=== PATIENT | male | born 1995 | race Caucasian/White ===

== ENCOUNTER 2017-04-24 14:04 | Emergency (ER) | payer BC ==
[~2017-04-24] VITALS: Ht 185.4 cm; Wt 89.8 kg
[2017-04-24 14:11] VITALS: Ht 185.4 cm; Wt 89.8 kg
[2017-04-24] MEDS ORDERED: SODIUM CHLORIDE 0.9% 1000ML 1,000 ML IV STA (15:22)
[2017-04-24] MEDS ORDERED: KETOROLAC TROMETHAMINE 30 MG/ML VIAL IV STA (15:22)
[2017-04-24 16:01] LABS: BASO % 1.1 %; BASO ABS # 0.04 K/uL (0-0.2); COMPLETE YES; HEMATOCRIT 37.8 % (42-52); IG% 0.3 %; LYMPH % 19.8 %; LYMPH ABS # 0.71 K/uL (1.2-3.4); MEAN CELL VOLUME 87.5 fL (80-100); MEAN CORPUSCULAR HEMOGLOBIN 31.3 pg (25-34); MEAN CORPUSCULAR HGB CONC 35.7 g/dl (32-36); MEAN PLATELET VOLUME 9.9 fL (7.4-10.4); MONO % 6.1 %; NEUT % 72.7 %; PLATELET COUNT 115 K/uL (130-400); RED BLOOD COUNT 4.32 M/uL (4.7-6.1); WHITE BLOOD COUNT 3.59 K/uL (4.8-10.8)
--- NOTE | 2017-04-24 16:04 | DIAGNOSTIC IMAGING REPORT ---
SINGLE VIEW CHEST CLINICAL HISTORY: Fever. FINDINGS: An AP, portable, upright chest radiograph is obtained. No prior studies are available for comparison at the time of dictation. The cardiomediastinal silhouette is unremarkable. The lungs and pleural spaces are clear. No pneumothorax is seen. The bony thorax is grossly intact. IMPRESSION: No active disease in the chest. Electronically signed by: Carson Rosado M.D. 04/24/2017 4:03 PM Dictated Date/Time: 04/24/2017 4:02 PM
[2017-04-24 16:17] LABS: BUN/CREATININE RATIO 9.3 (10-20); CALCIUM 9.3 mg/dl (8.5-10.1); CREATININE 0.87 mg/dl (0.60-1.40); POTASSIUM 4.2 mmol/L (3.5-5.1)
[2017-04-24 16:19] LABS: ALB/GLOB RATIO 1.1 (0.9-2)
[2017-04-24 16:29] LABS: URINE APPEARANCE CLEAR (CLEAR); URINE BILIRUBIN NEG (NEG); URINE COLOR YELLOW; URINE NITRITE NEG (NEG); URINE SPECIFIC GRAVITY 1.011 (1.000-1.030); UROBILINOGEN NEG (NEG); ZZUR CULT IF INDIC CLEAN CATCH NO
[2017-04-24] MEDS ORDERED: ZINC1TAB PO (16:36)
[2017-04-24] MEDS ORDERED: PRED10TA PO (16:36)
[2017-04-24] MEDS ORDERED: DEXT1CAP9 PO (16:36)
[2017-04-24] MEDS ORDERED: GUAI1TAB55 PO (16:36)
[2017-04-24 16:46] LABS: MANUAL MICROSCOPIC REQUIRED? NO; REVIEW REQ? NO
--- NOTE | 2017-04-24 20:29 | EMERGENCY ROOM VISIT NOTE ---
History First contact with patient: 15:12 Chief Complaint: FEVER Stated Complaint: FEVER,SHAKINESS,HEADACHE,NECK SORENESS History of Present Illness The patient is a 21 year old male who presents to the Emergency Room via private vehicle accompanied by female with complaints of "fever, shakiness, headache, neck soreness". The patient states that 5 days ago he began with feeling of sensitivity in his teeth, and head. He then developed chills, body aches and low back soreness. He states he also had soreness and it was neck. He states that this is progressing the fever has progressed to 104F yesterday and today. He has been taking Tylenol and ibuprofen for this at the maximum dosages but not over the maximum dosages. He also notes cold sweats and shivering. He states he does have numerous close contacts with similar symptoms. He denies any chest pain, shortness of breath, abdominal pain, sore throat. He has had no ibuprofen or Tylenol today. He only had DayQuil, Mucinex and 60 mg of prednisone which was prescribed to him by an individual at [facility] he saw yesterday. He also was encouraged to take zinc. Review of Systems A complete 10-point Review of Systems was discussed with the patient, with pertinent positives and negatives listed in the History of Present Illness. All remaining Review of Systems questions can be considered negative unless otherwise specified. Past Medical/Surgical History No pertinent Family History No pertinent Social History Smoking Status: Never Smoker Pt. is a [employer] student and lives locally. Current/Historical Medications Scheduled Prednisone Tab (Prednisone), 10 MG PO UD Zinc Gluconate (Zinc), 50 MG PO DAILY Scheduled PRN Dextromethorphan-Phenylephrine (Vicks Dayquil Cold & Flu), 1 CAP PO UD PRN for Cold/Flu Symptoms Guaifenesin Ext Rel (Mucinex Ext Rel), 1,200 MG PO Q12 PRN for Cough/Congestion Physical Exam Vital Signs Date Time Temp Pulse Resp B/P (MAP) Pulse Ox O2 Delivery O2 Flow Rate FiO2 04/24/17 20:36 36.9 86 18 119/55 99 04/24/17 18:12 37.1 04/24/17 16:07 79 16 121/67 98 Room Air 04/24/17 14:11 38.7 102 20 157/78 97 Room Air Physical Exam VITAL SIGNS - Vital signs and nursing notes were reviewed. Febrile. Hypertensive and tachycardic. GENERAL -21-year-old male appearing his stated age who is in no acute distress. Communicates well with provider and answers questions appropriately. SKIN - Without rashes. HEAD - NC/AT. EYES - PERRL with EOMI bilaterally. Sclera anicteric. EARS - No deformities of external structures noted on gross examination bilaterally. External auditory canals without discharge or otorrhea. Tympanic membranes pearly espino without retraction or bulging. No fluid or purulent material visualized behind the TM. Handle of malleus, umbo, cone of light, pars tensa/flaccid all easily visualized. NOSE - Midline and without cyanosis. No epistaxis or purulent drainage noted. Septum midline without deviation or septal hematoma noted. MOUTH/OROPHARYNX - Without perioral cyanosis. NECK - Neck with FROM. Supple to palpation. No lymphadenopathy noted. No nuchal rigidity. LUNGS - Chest wall symmetric without accessory muscle use, intercostals retractions, or central cyanosis. Normal vesicular breath sounds CTA B/L. No wheezes, rales, or rhonchi appreciated. CARDIAC - RRR with S1/S2. No murmur, rubs, or gallops appreciated. ABDOMEN - Abdominal contour normal without pulsations or visible masses. BS normoactive all four quadrants. No tenderness, palpable masses, hepatosplenomegaly, or ascites noted. No Stovall sign or right upper quadrant tenderness. EXTREMITIES - No clubbing or peripheral cyanosis. No pretibial edema present. + 5/5 strength noted in UE/LE bilaterally. NEUROLOGIC - Cranial nerves II through XII grossly intact. Sensory intact to light touch throughout. PSYCH - A&O, and cooperates fully with examiner. Pt is very pleasant and interacts well with examiner. Medical Decision & Procedures ER Provider Diagnostic Interpretation: SINGLE VIEW CHEST CLINICAL HISTORY: Fever. FINDINGS: An AP, portable, upright chest radiograph is obtained. No prior studies are available for comparison at the time of dictation. The cardiomediastinal silhouette is unremarkable. The lungs and pleural spaces are clear. No pneumothorax is seen. The bony thorax is grossly intact. IMPRESSION: No active disease in the chest. Electronically signed by: Carson Rosado M.D. 04/24/2017 4:03 PM Dictated Date/Time: 04/24/2017 4:02 PM Laboratory Results 04/24/17 15:30 Red Blood Count 4.32, Mean Corpuscular Volume 87.5, Mean Corpuscular Hemoglobin 31.3, Mean Corpuscular Hemoglobin Concent 35.7, Mean Platelet Volume 9.9, Neutrophils (%) (Auto) 72.7, Lymphocytes (%) (Auto) 19.8, Monocytes (%) (Auto) 6.1, Eosinophils (%) (Auto) 0.0, Basophils (%) (Auto) 1.1, Neutrophils # (Auto) 2.61, Lymphocytes # (Auto) 0.71, Monocytes # (Auto) 0.22, Eosinophils # (Auto) 0.00, Basophils # (Auto) 0.04 04/24/17 15:30 Test 04/24/17 15:30 04/24/17 16:00 04/24/17 18:50 White Blood Count 3.59 K/uL (4.8-10.8) Red Blood Count 4.32 M/uL (4.7-6.1) Hemoglobin 13.5 g/dL (14.0-18.0) Hematocrit 37.8 % (42-52) Mean Corpuscular Volume 87.5 fL (80-100) Mean Corpuscular Hemoglobin 31.3 pg (25-34) Mean Corpuscular Hemoglobin Concent 35.7 g/dl (32-36) Platelet Count 115 K/uL (130-400) Mean Platelet Volume 9.9 fL (7.4-10.4) Neutrophils (%) (Auto) 72.7 % Lymphocytes (%) (Auto) 19.8 % Monocytes (%) (Auto) 6.1 % Eosinophils (%) (Auto) 0.0 % Basophils (%) (Auto) 1.1 % Neutrophils # (Auto) 2.61 K/uL (1.4-6.5) Lymphocytes # (Auto) 0.71 K/uL (1.2-3.4) Monocytes # (Auto) 0.22 K/uL (0.11-0.59) Eosinophils # (Auto) 0.00 K/uL (0-0.5) Basophils # (Auto) 0.04 K/uL (0-0.2) RDW Standard Deviation 40.6 fL (36.4-46.3) RDW Coefficient of Variation 12.6 % (11.5-14.5) Immature Granulocyte % (Auto) 0.3 % Immature Granulocyte # (Auto) 0.01 K/uL (0.00-0.02) Anion Gap 6.0 mmol/L (3-11) Est Creatinine Clear Calc Drug Dose 154.3 ml/min Estimated GFR () 145.0 Estimated GFR (Non- 125.1 BUN/Creatinine Ratio 9.3 (10-20) Calcium Level 9.3 mg/dl (8.5-10.1) Total Bilirubin 2.3 mg/dl (0.2-1) Aspartate Amino Transf (AST/SGOT) 55 U/L (15-37) Alanine Aminotransferase (ALT/SGPT) 43 U/L (12-78) Alkaline Phosphatase 77 U/L (45-117) Total Protein 8.2 gm/dl (6.4-8.2) Albumin 4.2 gm/dl (3.4-5.0) Globulin 4.0 gm/dl (2.5-4.0) Albumin/Globulin Ratio 1.1 (0.9-2) Influenza Type A Antigen Neg for Influ A (NEG) Influenza Type B Antigen Neg for Influ B (NEG) Urine Color YELLOW Urine Appearance CLEAR (CLEAR) Urine pH 7.0 (4.5-7.5) Urine Specific [place] 1.011 (1.000-1.030) Urine Protein NEG (NEG) Urine Glucose (UA) NEG (NEG) Urine Ketones TRACE (NEG) Urine Occult Blood NEG (NEG) Urine Nitrite NEG (NEG) Urine Bilirubin NEG (NEG) Urine Urobilinogen NEG (NEG) Urine Leukocyte Esterase NEG (NEG) Direct Bilirubin 0.4 mg/dl (0-0.2) Acetaminophen Level < 2 ug/ml (10-30) Monoscreen NEG (NEG) Medications Administered Medications (Trade) Dose Ordered Sig/Skye Route Start Time Stop Time Status Last Admin Dose Admin Sodium Chloride 1,000 ml @ 999 mls/hr Q1H1M STAT IV 04/24/17 15:22 04/24/17 16:22 DC 04/24/17 15:33 999 MLS/HR Ketorolac Tromethamine (Toradol Inj) 30 mg NOW STAT IV 04/24/17 15:22 17 15:24 DC 04/24/17 15:34 30 MG Medical Decision Patient was seen and evaluated as above. He presents to us today subjective and objective fever 5 days. He is well on exam. No evidence of meningitis or encephalitis. He is smiling and able to fully discuss why he is here today. Decision was made to obtain IV access, and the above workup was performed. CBC reveals decrease in white blood cell count at 3.59, and anemia with hemoglobin of 13.5. Patient's metabolic panel reveals a total bilirubin of 2.3, and direct at 0.4. AST slightly high at 55. Urine negative except for trace ketones. Acetaminophen level negative. Negative for mono and Lyme screen. Chest x-ray negative. I suspect the patient is likely experiencing a viral process, and responded very well to Toradol, and fluids. He went from a febrile state upon presentation to afebrile. And his blood pressure seemed to do very well. I discussed with him the elevated bilirubin, and he has never heard of this before. In the absence of any findings of cholangitis, or acute intra-abdominal pain or process I suspect this could be from viral process, undiagnosed mono or underlying condition of which she will need to follow up for. I believe he is stable to follow-up in the outpatient setting, and he is to follow with [facility] by calling him tomorrow to schedule recheck or return for which symptoms he has been educated upon. He was educated upon management, had questions and provided discharge, and was discharged home in good condition. He was offered lumbar puncture and declined. Case was discussed with the attending physician. In evaluation treatment this patient the following differential diagnoses were entertained: Mononucleosis, influenza, meningitis, encephalitis, ascending cholangitis, among others. Impression Primary Impression: Fever Additional Impressions: Anemia Elevated AST (SGOT) Total bilirubin, elevated Departure Information Dispostion Home / Self-Care Condition GOOD Referrals No Doctor, Assigned (PCP) Patient Instructions My [facility] Additional Instructions You were seen in the emergency Department for a fever. As we discussed I believe you are experiencing a viral process. Please rest and drink plenty of fluids to include Gatorade and water. Please follow-up with [facility] for recheck of your white blood cell count, bilirubin as well as your AST which is your liver chemical. I have provided you with the values that we found here today. Please return with any new/concerning symptoms. Problem Qualifiers
[2017-04-24 20:36] VITALS: BP 119/55; PULSE 86; TEMP 36.9; O2SAT 99
== END 2017-04-24 20:39 | disposition home or self-care (01) ==
LOC: C.EDB 14:06 → C.EDC 20:39
DX: R50.9 Fever, unspecified (principal); D64.9 Anemia, unspecified; R74.0 Nonspecific elevation of levels of transaminase and lactic acid dehydrogenase [LDH]; E80.7 Disorder of bilirubin metabolism, unspecified